=== PATIENT | male | born 1960 | race Two or more races ===

== ENCOUNTER 2024-03-20 23:23 | Emergency (ER) | payer BC, OTHER ==
[~2024-03-20] VITALS: Ht 177.8 cm; Wt 101.1 kg
[2024-03-21 00:11] LABS: Basophils # (auto) 0 10 ^3/uL (0-0.2); Basophils % (auto) 0.5 % (0.0-2.0); Eosinophils # (auto) 0.2 10 ^3/uL (0-0.8); Hematocrit 43.4 % (41.0-53.0); Hemoglobin 14.6 g/dL (13.5-17.5); Lymphocytes # (auto) 2.7 10 ^3/uL (0.4-5.4); Mean Corpuscular Hemoglobin 29.9 pg (28.0-32.0); Mean Corpuscular Hgb Conc. 33.6 g/dL (32.0-36.0); Monocytes % (auto) 12.8 % (0.0-12.0); Neutrophils # (auto) 3.8 10 ^3/uL (1.6-8.6); Neutrophils % (auto) 49.7 % (37.0-80.0); Platelet Count (auto) 205 10^3/uL (140-450); Red Blood Cells 4.88 10^6/uL (4.5-5.90); Red Cell Distribution Width 12.8 % (11.8-14.3); White Blood Cell 7.6 10^3/uL (4.4-10.8)
[2024-03-21] MEDS: IOHEXOL 300 MG/ML 100ML BOTTLE IJ ONE (00:18)
[2024-03-21] MEDS: HYDROcodone-ACET 5/325MG TAB PO ONE (00:21)
[2024-03-21 00:32] LABS: Alanine Aminotransferase 154 U/L (7-40); Albumin 4.2 g/dL (3.2-4.8); Alkaline Phosphatase 186 U/L (46-116); Anion Gap 7 (5-15); Aspartate Aminotransferase 35 U/L (13-40); BUN/Creatinine Ratio 14.9 (10.0-20.0); Blood Urea Nitrogen 13 mg/dL (9-23); Calcium 9.4 mg/dL (8.7-10.4); Carbon Dioxide 24 mmol/L (20-31); Chloride 108 mmol/L (98-107); Glucose 187 mg/dL (74-106); Potassium 3.8 mmol/L (3.5-5.1); Sodium 139 mmol/L (136-145)
[2024-03-21 00:33] LABS: Bilirubin, Total 0.5 mg/dL (0.2-1.0); Total Protein 6.6 g/dL (5.7-8.2)
[2024-03-21] MEDS: fentaNYL CITRATE 100 MCG/2 ML VL IV ONE (00:49)
[2024-03-21] MEDS ORDERED: BACDST PO (02:59)
[2024-03-21 03:29] VITALS: BP 124/57; PULSE 60; RESP 16; TEMP 97.9; O2SAT 97
== END 2024-03-21 03:32 | disposition home or self-care (01) ==
LOC: ER 23:23
DX: K61.1 Rectal abscess (principal)
CPT/HCPCS: 36415; 74177; 80053; 83605; 85025; 87205; 96374; 99285; J3010; Q9967